=== PATIENT | female | born 1960 | race Caucasian/White ===

== ENCOUNTER 2018-01-08 20:52 | Emergency (ER) | payer MEDICAID, SELFPAY ==
[2018-01-08 20:53] VITALS: BP 172/125; PULSE 79; RESP 16; TEMP 37.1; O2SAT 100; BMI 31.1
--- NOTE | 2018-01-08 21:33 | ED.VISSUMM ---
- ER Visit Summary Date of Service: 01/08/18 Chief Complaint: Abdominal pain History of Present Illness: The patient is a 57 F presents to the emergency department abdominal pain. The patient is traveling from [place]. She is very otherwise healthy woman. She had aortic stenosis at and had open heart surgery done. She then had valve replacement done in 2007. She is not on anticoagulants. She states she has been in her normal state of health. She was eating today and began to have some midepigastric pain into her right upper quadrant. The pain slowly worsened over the past 2 hours. She has been nauseated and has had some vomiting. She denies any fevers or chills. She denies any chest pain. She denies any shortness of breath. She has had prior appendectomy, but no other abdominal surgery. Physical Examination: Vital signs reviewed General: Well-nourished, well-developed Head: Normocephalic, atraumatic Eyes: Pupils equal and reactive, extraocular muscles intact Neck, supple, no lymphadenopathy Heart: Regular rate and rhythm Respiratory: No distress, clear bilaterally Abdomen: Soft, mildly tender in the right upper quadrant, nondistended, no peritoneal signs Back: Nontender Extremities: Nontender, no edema, no cords Skin: Normal color no rash Neuro: Alert and oriented, no focal or lateralizing deficits Test Results: [] Emergency Department Course and Treatment: The patient symptoms do seem most consistent with biliary colic. Her pain worsened after eating. It is in the midepigastric area in the right upper quadrant. She has no definitive Carney sign on palpation. IV was established. She was given morphine and Zofran. She had marked improvement of her nausea and resolution of her pain. Screening labs are relatively unremarkable. There is no evidence of obstructive pattern on her LFTs. Patient underwent ultrasound which showed distended gallbladder and some stones, but the common bile duct was normal, there is no pericholecystic fluid, and the gallbladder wall was normal thickness. At this time, I do feel that this is symptomatic biliary colic. The patient's pain is controlled. Her nausea is resolved. She is traveling back to [place]. I do feel that she is safe for outpatient follow-up. We will treat her pain and nausea with oral medication. She was counseled on concerning symptoms and reasons to return to the emergency department. She will be discharged home. Treatment Plan: [] Disposition: Discharge Impression: Biliary colic This note was generated with [employer] dictation software. It may contain incorrect words, spelling, and punctuation that were not noted in review of the chart prior to signing ED Disposition - Plan for ED Patient: Chief Complaint: Abd Pain Instructions: ED Abdominal Pain Gallstone Poss Prescriptions: Hydrocodone Bitart/Apap 5-325 [[place] 5MG-325MG] 1 tab PO Q6H PRN PRN 3 Days #10 tab PRN Reason: Pain Ondansetron [Zofran Odt] 4 mg PO Q8H PRN PRN #10 tab PRN Reason: Nausea Referrals: [facility] Doctor,Out of [Primary Care Provider] -
[2018-01-08] MEDS: Ketorolac 30 MG/ML Syringe IV (21:39)
[2018-01-08] MEDS: Ondansetron 4 MG/2 ML Vial IV (21:39)
[2018-01-08] MEDS: 0.9% Normal Saline 1,000 ML 1000 ML IV (21:39)
[2018-01-08 21:44] VITALS: BP 164/82; PULSE 69; RESP 22; O2SAT 99
[2018-01-08] MEDS: Morphine 4 MG/ML Syringe IV (21:48)
[2018-01-08 21:53] LABS: Absolute Lymphocyte Count 1.56 X10^3/ul (0.83-4.51); Absolute Neutrophil Count 6.6 X10^3/uL (2.0-7.7); Basophil# 0.02 X10^3/uL; Basophil% 0.2 % (0-1); Eosinophil# 0.19 X10^3/uL; Hematocrit 39.7 % (37-47); Lymphocyte # 1.56 X10^3/ul (4.0); Lymphocyte % 16.8 % (19-41); Mean Corp Hgb Conc 32.7 g/gl (32-36); Mean Corpuscular Hgb 28.1 pg (27.0-32.0); Mean Corpuscular Volume 85.7 fL (81-99); Monocyte# 0.88 X10^3/uL; Monocyte% 9.5 % (0-10); Neutrophil # 6.64 X10^3/uL (2.7-7.7); Neutrophil % 71.4 % (47-70); Platelet Count 189 K/mm3 (150-450); RBC Distribution Width CV 14.7 % (11.6-14.6); RBC Distribution Width SD 45.9 fl (35.1-43.9); Red Blood Count 4.63 M/mm3 (4.2-5.4); White Blood Count 9.3 K/mm3 (4.4-11.0)
[2018-01-08 22:02] LABS: AST(SGOT) 30 U/L (15-37); Alanine Aminotransfer ALT/SGPT 48 U/L (13-56); Albumin, Serum 4.1 g/dL (3.2-5.0); Alkaline Phosphatase 120 U/L (45-117); Anion Gap 7 (5-15); BUN 17 mg/dL (7-18); BUN/Creat Ratio 16.7 RATIO (10-20); Chloride 106 mmol/L (98-107); Creatinine, Serum 1.02 mg/dL (0.55-1.02); EST Glomerular Filtration Rate 59 mL/min (>60); Est Glom Filt Rate - Afr Amer 71 mL/min (>60); Estimated Creatinine Clearance 58.46 ml/min; Globulin 3.7 g/dL (2.2-4.2); Glucose 124 mg/dL (74-106); Lipase 178 U/L (73-393); Potassium 4.1 mmol/L (3.5-5.1); Protein, Total 7.8 g/dL (6.4-8.2); Sodium Level 143 mmol/L (136-145)
[2018-01-08 22:05] LABS: POSITIVE COUNT NO; POSITIVE DIFFERENTIAL NO; POSITIVE MORPHOLOGY NO
[2018-01-08 23:45] VITALS: PULSE 69; RESP 14; O2SAT 99
== END 2018-01-08 23:51 | disposition home or self-care (01) ==
PROVIDERS: Emergency Provider Emergency Medicine
DX: K80.50 Calculus of bile duct without cholangitis or cholecystitis without obstruction (principal); Z95.2 Presence of prosthetic heart valve
CPT/HCPCS: 76705; 80048; 80076; 83690; 85025; 96361; 96374; 96375; 99283; J7030; J2405